=== PATIENT | female | born 1980 | race Caucasian/White ===

== ENCOUNTER 2018-05-25 09:53 | Day surgery (SDC) | payer BC ==
--- NOTE | 2018-05-24 20:53 | PREOPHP ---
DATE OF ADMISSION: 05/25/2018 HISTORY OF PRESENT ILLNESS: Ms. Aparna Chavez is a 37-year-old 4, para 4, desires permanent surgical sterilization. PAST MEDICAL HISTORY: None. MEDICATIONS: vitamins. PAST SURGICAL HISTORY: None. OBSTETRICAL HISTORY: x4 vaginal delivery. GYNECOLOGIC HISTORY: 10, regular 3 to 4 days. Denies any sexually transmitted disease. Sexually ac tive with 1 partner. SOCIAL HISTORY: Denies any smoking, drugs or alcohol. FAMILY HISTORY: None. REVIEW OF SYSTEMS: All within normal except history of present illness. PHYSICAL EXAMINATION: HEENT: Within normal. LUNGS: CTA bilateral. CARDIOVASCULAR: S1, S2. Regular rate, rhythm. ABDOMEN: Gravid, nontender. Negative CVA bilateral. EXTREMITIES: Negative for calf tenderness. VAGINAL: Normal external genitalia. Cervix negative CMT, negative lesions. Adnexa negative mass, n ontender bilateral. Fundus within normal limits. ASSESSMENT: Multiparity, desires permanent surgical sterilization. PLAN: Consent for laparoscopic bilateral tubal sterilization. Risks, benefits and alternatives were explained. All questions were answered. Dictated By: JALEN RIVAS/DEBRA Conf#: [id number] DID#: [id number]
[~2018-05-25] VITALS: Ht 142.2 cm; Wt 77.5 kg
[2018-05-25] VITALS (21 sets, daily range): BP systolic 116–151; BP diastolic 65–96; PULSE 60–77; RESP 16–33; Ht 142.2 cm; Wt 77.5 kg
[~2018-05-25 09:53] MED LIST: ACETAMINOPHEN 500 MG TAB PO ONE; CEFAZOLIN 1 GM INJ ONE; ROCURONIUM 50 MG INJ ONE; SUGAMMADEX SODIUM 200 MG/2 ML VIAL IV ONE
--- NOTE | 2018-05-25 12:23 | PREAC ---
Date/Time of Note Date/Time of Note DATE: 05/25/18 TIME: 12:21 Anesthesia Eval and Record Evaluation Time Pre-Procedure Interview DATE: 05/25/18 TIME: 12:21 Age 37 Sex female NPO: 8 hrs Preoperative diagnosis elective sterilization Planned procedure laparoscopic bilateral tubal ligation Past Medical History Past Medical History: Includes GI: Obesity Surgery & Anesthesia Issues No known issue Meds Anticoagulation: No Beta Omar within 24 hr: No Reason Beta Omar not given: Pt. not on B-Omar No Active Prescriptions or Reported Meds Meds reviewed: Yes Allergies Coded Allergies: No Known Allergy (Unverified , 05/25/18) Allergies Reviewed: Yes Labs/Studies Labs Reviewed: Reviewed by anesthesiologist test: Negative Pre-procedure Exam Last vitals Vital Signs Date Temp Pulse Resp B/P (MAP) Pulse Ox O2 O2 Flow FiO2 Time Delivery Rate 05/25/18 97.6 65 16 145/82 99 Room Air 10:48 (103) Airway: Adequate mouth opening, Adequate thyromental dist Mallampati: Mallampati II Teeth: Abnormal (broken upper right molar; teeth appear in poor condition) Lung: Normal Heart: Normal ASA Physical Status ASA physical status: 2 Emergency: None Planned Anesthetic General/MAC: ETT Pre-operative Attestations Prior to commencing anesthesia and surgery, the patient was re-evaluated, there was verification of: *The patient's identity *The results of appropriate recent lab work and preoperative vital signs *The above evaluation not changing prior to induction *Anesthetic plan, risk benefits, alternative and complications discussed with patient/family; questions answered; patient/family understands, accepts and wishes to proceed. WILBERTO GREEN May 25, 2018 12:23
[2018-05-25] MEDS ORDERED: LIDOCAINE 2% (SDV) 5 ML INJ ONE (12:27)
[2018-05-25] MEDS ORDERED: ONDANSETRON 4 MG INJ ONE (12:27)
[2018-05-25] MEDS ORDERED: FAMOTIDINE 20 MG INJ ONE (12:27)
[2018-05-25] MEDS ORDERED: PROPOFOL 40 ML ONE (12:27)
[2018-05-25] MEDS ORDERED: MIDAZOLAM 1 MG/ML 2 ML INJ ONE (12:27)
[2018-05-25] MEDS ORDERED: FENTAnyl 50 MCG/ML VIAL ONE (12:27)
[2018-05-25] MEDS ORDERED: LABETALOL HCL 20MG INJ IV PRN (12:30)
[2018-05-25] MEDS ORDERED: OXYCODONE/ACETAMINOPHEN (5/325) TAB PO PRN ×2 (12:30)
[2018-05-25] MEDS ORDERED: DIPHENHYDRAMINE 50 MG INJ IV PRN (12:30)
[2018-05-25] MEDS ORDERED: ALBUTEROL 0.083% (NEB) 2.5 MG/3 ML AMP HHN PRN (12:30)
[2018-05-25] MEDS ORDERED: HYDROmorphONE 1 MG/5 ML IV SYRINGE IV PRN ×3 (12:30)
[2018-05-25] MEDS ORDERED: MEPERIDINE 25 MG INJ IV PRN (12:30)
[2018-05-25] MEDS ORDERED: FENTAnyl 50 MCG/ML VIAL IV PRN ×2 (12:30)
[2018-05-25] MEDS ORDERED: morphine (1 MG/ML) 10ML SYRINGE IV PRN ×2 (12:30)
[2018-05-25] MEDS ORDERED: ONDANSETRON 4 MG INJ IV PRN (12:30)
[2018-05-25] MEDS ORDERED: LIDOCAINE 1%/EPI (1:100,000) (MDV) 20 ML ONE (12:52)
[2018-05-25] MEDS ORDERED: KETOROLAC 30 MG INJ ONE (13:09)
--- NOTE | 2018-05-25 13:18 | OPPN ---
Date/Time of Note Date/Time of Note DATE: 05/25/18 TIME: 13:16 Operative Report Planned Procedure Procedure date May 25, 2018 Procedure(s) laparoscopic bilateral tubal sterilization. Performed by see signature line Lease Picker: JALEN GUPTA MD 2nd Lease Picker none Pre-procedure diagnosis Multiparity, desires permanent surgical sterilization. [id number] Anesthesia Type: [id number] general Post-Procedure Post-procedure diagnosis same Findings normal uterus tubes and ovaries Estimated Blood Loss: 0 - 10 mls Specimen(s) none Grafts/Implant(s) none Complication(s) none JALEN GUPTA MD May 25, 2018 13:18
--- NOTE | 2018-05-25 13:19 | PD.PPDC ---
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 [id number] Patient Condition: Imuda7a Fair Diet Slbio9Qt Diet: Dzvzi6l Resume Regular Diet Activity/Restrictions Joyym3Td Activity: Rbmua6l Normal Activity May Shower Onbdv1Br Restrictions: Dcglz0b No Exercising No Lifting No Driving No Sexual Activity Nothing in the Vagina No [place] No Tampons, douche Follow-up Follow-up with Physician: 2, Week/Weeks Return to clinic for Jhtwk7Ii ASSIGNMENT OFFICER Instructions: Hdemi5a Fever greater than 101 Chills Worsening abdominal pain Excessive Vaginal Bleeding More than 2 pads per hour Unable to tolerate diet Rvfig3Xs OB Instructions: Ctnml6w Breast Tenderness Depression Blurried Vision Headache Bejmm7Bo Surgical Instructions: Xuolo3t Incisional Drainage Incisional Redness JALEN GUPTA MD May 25, 2018 13:19
--- NOTE | 2018-05-25 13:36 | PAC ---
Date/Time of Note Date/Time of Note DATE: 05/25/18 TIME: 13:35 Post-Anesthesia Notes Post-Anesthesia Note Last documented vital signs Vital Signs Date Temp Pulse Resp B/P (MAP) Pulse Ox O2 O2 Flow FiO2 Time Delivery Rate 05/25/18 97.6 98 65 70 16 16 145/82 99 99 Room 10:48 (103) 117 Air 6L 1329 /65 face mask Activity: WNL Respiratory function: WNL Cardiovascular function: WNL Mental status: Baseline Pain reasonably controlled: Yes Hydration appropriate: Yes Nausea/Vomiting absent: Yes WILBERTO GREEN May 25, 2018 13:36
--- NOTE | 2018-05-26 08:09 | OPR ---
DATE OF OPERATION: 05/25/2018 PREOPERATIVE DIAGNOSES: Multiparity, desires permanent sterilization. POSTOPERATIVE DIAGNOSES: Multiparity, desires permanent sterilization. OPERATION PERFORMED: Laparoscopic bilateral tubal fulguration. SURGEON: Jalen Gupta M.D. FLOUR DISTRIBUTOR: None. ANESTHESIA: General. COMPLICATIONS: None. ESTIMATED BLOOD LOSS: 10 mL. FINDINGS: Normal tubes and ovaries. DESCRIPTION OF PROCEDURE: After explaining the risks, benefits and alternatives, the patient consent signed in the chart, the patient was taken to the operating room where general anesthesia was obtain ed without difficulty. The patient was then examined under anesthesia and found to have a small ante verted uterus with normal adnexa. She was then placed in dorsal lithotomy position and prepared and draped in normal sterile fashion. A heavy weighted speculum was then placed in the patient's vagina and the anterior lip of the cervix was grasped with a single tooth tenaculum. A HUMI uterine manipul ator was then advanced into the uterus to provide means to manipulate the uterus. The speculum was t hen removed from the vagina. Attention was then turned to the patient's abdomen where a 5 mm skin in cision was made in the umbilical fold. The Veress needle was carefully introduced into the peritonea l cavity at 45-degree angle while tenting the abdominal wall. Intraperitoneal placement was confirme d by use of water-filled syringe and a drop in intraabdominal pressure with insufflation of CO2 gas. The trocar and sleeve were then advanced without difficulty into the abdomen. Intra-abdominal place ment was confirmed by laparoscope. Pneumoperitoneum was obtained with 4 liters CO2 gas and the 5 mm trocar and sleeve were then advanced without difficulty into the abdomen where intra-abdominal placem ent was confirmed by laparoscope. A second skin incision was made 2 cm above the symphysis pubis in the midline. The second trocar and sleeve were then advanced under direct visualization. A survey o f the patient's pelvis and abdomen revealed entirely normal anatomy. The right fallopian tube was fu lgurated at multiple areas of the isthmus and ampullary region with good blanching and no bleeding fr om the mesosalpinx. Similarly, the left fallopian tube was fulgurated. At this point, the instrumen ts were then removed from the patient's abdomen and the incision was repaired with a 3-0 Vicryl. The HUMI was then removed from the vagina with no bleeding noted from the cervix. The patient tolerated procedure well. All counts were correct. The patient was taken to recovery room in stable conditio n. Dictated By: JALEN RIVAS/DEBRA Conf#: [id number] DID#: [id number] CC: JALEN GUPTA MD;*EndCC*
== END 2018-05-25 16:00 | disposition home or self-care (01) ==
LOC: SDS 09:53
PROVIDERS: ATTEND Obstetrics & Gynecology
DX: Z30.2 Encounter for sterilization (principal)
CPT/HCPCS: 58670; J0690; J1170; J1885; J2250; J2405; J3010; Z7512; Z7610